=== PATIENT | female | born 1965 | race Caucasian/White ===

== ENCOUNTER 2017-04-14 16:20 | Inpatient (IN) | payer OTHER ==
[2017-04-14] VITALS (10 sets, daily range): BP systolic 85–123; BP diastolic 31–87
[~2017-04-14] VITALS: Ht 167.6 cm; Wt 95.8 kg
--- NOTE | ~2017-04-14 | 2DMMODE ---
[facility] [address] [place] [address] 2 D/M-MODE ECHOCARDIOGRAM Name: MATY BRAGA Room #: 246-P ADM IN .R.#: [id number] Admission: 04/14/17 Attend Phys: Bri Love Discharge: Date of : 67 Date of Service: 04/15/17 0915 Report #: [id number] THIS REPORT FOR: //name// APPROVED REPORT Study performed: 04/15/2017 08:35:45 EXAM: Comprehensive 2D, Doppler, and color-flow Echocardiogram Patient Location: ICU Room #: 246 Status: routine BSA: 2.01 HR: 59 bpm BP: 117/55 mmHg Other Information Study Quality: Adequate Indications Pulmonary Embolism Syncope Hypertension/HDD 2D Dimensions RVDd: 34.16 mm LVEF(%): 64.26 (>50%) IVSd: 9.83 (7-11mm) LVOT Diam: 19.71 (18-24mm) LVDd: 54.44 mm PWd: 9.66 (7-11mm) Ascending Ao: 27.04 (22-36mm) LVDs: 35.17 (25-40mm) Aortic Root: 30.72 mm IVC: 19.00 mm Galvan's LVEF: 64.26 % Volumes Left Atrial Volume (Systole) Single Plane 4CH: 43.67 mL Single Plane 2CH: 32.71 mL LA ESV Index: 22.00 mL/m2 Aortic Valve AoV Peak Paulo.: 1.23 m/s AO Peak Gr.: 6.04 mmHg LVOT Max P.64 mmHg LVOT Max V: 1.08 m/s MIKE Vmax: 2.67 cm2 Mitral Valve E/A Ratio: 1.4 [facility] [address] [address] 2 D/M-MODE ECHOCARDIOGRAM Name: MARIA LUZMATY Anita Room #: 246-[facility].#: [id number] Admission: 04/14/17 Attend Phys: Bri Love Discharge: Date of : 67 Date of Service: 04/15/17 0915 Report #: [id number] MV Decel. Time: 180.37 ms MV E Max Paulo.: 0.92 m/s MV A Paulo.: 0.68 m/s MV PHT: 52.31 ms IVRT: 83.04 ms Pulmonary Valve PV Peak Paulo.: 0.98 m/s PV Peak Gr.: 3.86 mmHg Pulmonary Vein P Vein S: 0.38 m/s P Vein A: 0.20 m/s P Vein D: 0.25 m/s P Vein A Dur.: 124.6 msec P Vein S/D Ratio: 1.52 Tricuspid Valve TR Peak Paulo.: 2.47 m/s TR Peak Gr.: 24.31 mmHg PA Pressure: 29.00 mmHg Left Ventricle The left ventricle is normal size. There is normal LV segmental wall motion. There is normal left ventricular wall thickness. The left ventricular systolic function is normal. The left ventricular ejection fraction is within the normal range. LVEF is 60-65%. Grade II - pseudonormal filling dynamics. Right Ventricle The right ventricle is normal size. The right ventricular systolic function is normal. Atria The left atrium size is normal. The right atrium size is normal. Aortic Valve The aortic valve is normal in structure. No aortic regurgitation is present. There is no aortic valvular stenosis. Mitral Valve The mitral valve is normal in structure. Trace mitral regurgitation. No evidence of mitral valve stenosis. Tricuspid Valve The tricuspid valve is normal in structure. There is no tricuspid valve stenosis. There is trace tricuspid regurgitation. The right atrial pressure is estimated at mmHg. There is no pulmonary [facility] [address] [place] [address] 2 D/M-MODE ECHOCARDIOGRAM Name: MATY BRAGA Room #: 246-P [facility]#: [id number] Admission: 04/14/17 Attend Phys: Bri Love Discharge: Date of : 67 Date of Service: 04/15/17 0915 Report #: [id number] hypertension. Pulmonic Valve The pulmonary valve is normal in structure. Trace pulmonic regurgitation. Great Vessels The aortic root is normal in size. IVC is normal in size and collapses >50% with inspiration. Pericardium There is no pericardial effusion. <Conclusion> The left ventricular systolic function is normal. There is normal LV segmental wall motion. LVEF 60-65%. The right ventricle is normal size. The aortic valve is normal in structure. No aortic regurgitation or stenosis The mitral valve is normal in structure. Trace mitral regurgitation. Pulmonary artery pressure of 30mmHg There is no pericardial effusion. <ELECTRONICALLY SIGNED> By: Willian Dia MD, [facility] 04/15/17914 4 4 Willian Dia MD, FACC /INF
--- NOTE | ~2017-04-14 | EKG ---
[address] [address] ELECTROCARDIOGRAM REPORT Name: MATY BRAGA Room #: 170-6 ADM IN M.R.#: [id number] Admission: 04/14/17 Attend Phys: Bri Ahmadi Discharge: Date of : 67 Report #: [id number] THIS REPORT FOR: //name// [facility] ED Test Date: 2017-04-14 Test Time: 16:31:50 Pat Name: MATY BRAGA Department: Room: 170 Gender: F Sandwich Maker: DOLORES : 1965 Requested By: Joselyn Booth Order Number: [id number] MD: Mario Arana Measurements Intervals [place] Rate: 70 P: 30 KS: 166 QRS: 20 QRSD: 107 T: 79 QT: 466 QTc: 503 Interpretive Statements Sinus rhythm Borderline repolarization abnormality No previous ECG available for comparison Electronically Signed On 04-14-2017 20:20:22 QUALITY PROCESS LEAD by Mario Arana [email or web address] <ELECTRONICALLY SIGNED> By: Mario Arana MD 04/14/172019 30 1631 Mario Arana MD /YANCI
[2017-04-14] MEDS ORDERED: ZANTAC 150MG T150 MG PO (16:29)
[2017-04-14] MEDS ORDERED: ZYRTEC10 M4 PO (16:30)
[2017-04-14] MEDS ORDERED: XANAX 0.5 MG0.5 MG PO (16:30)
[2017-04-14] MEDS ORDERED: SYNTHROID100 MCG PO (16:30)
[2017-04-14] MEDS ORDERED: BUSPIRONE HCL10 MG PO (16:31)
[2017-04-14] MEDS ORDERED: LOVASTATIN 20 M20 MG PO (16:31)
[2017-04-14] MEDS ORDERED: ZOLOFT100 MG PO (16:32)
[2017-04-14] MEDS ORDERED: TESSALON PERLE100 MG PO (16:32)
[2017-04-14] MEDS ORDERED: WELLBUTRIN XL300 MG PO (16:32)
[2017-04-14] MEDS ORDERED: FOSINOPRIL 10 M10 M1 PO (16:33)
[2017-04-14] MEDS ORDERED: LAMOTRIGINE100 MG PO (16:33)
[2017-04-14] MEDS ORDERED: MAXZIDE-25 MG1 EACH PO (16:33)
[2017-04-14 16:48] LABS: ABSOLUTE NEUTROPHILS 5.6 thou/uL (1.4-8.2); BASOPHILS 0.8 % (0.0-2.0); EOSINOPHILS 1.8 % (0.0-3.0); HEMATOCRIT 44.7 % (37.0-47.0); HEMOGLOBIN 15.4 gm/dL (12.0-15.0); LYMPHOCYTES 35.1 % (24.0-44.0); MCHC 34.4 g/dL (28.0-37.0); MCV 87.2 fL (80.0-100.0); PLATELET COUNT 304 thou/uL (150-400); POLYS 55.3 % (36.0-66.0); RBC 5.12 mil/uL (4.20-5.00); RDW 12.8 % (10.5-14.5); WBC 10.1 thou/uL (4.0-11.0)
[2017-04-14 16:54] LABS: ANION GAP 10 mmol/L (7-16); BUN 14 mg/dL (7-18); CALCIUM 8.7 mg/dL (8.5-10.1); CHLORIDE 102 mmol/L (98-107); CO2 26 mmol/L (21-32); CREATININE 1.1 mg/dL (0.6-1.0); GLUCOSE 134 mg/dL (74-106); MANUAL DIFF NO; POTASSIUM 3.3 mmol/L (3.5-5.1); SODIUM 138 mmol/L (136-145)
[2017-04-14 17:03] LABS: ALKALINE PHOSPHATASE 87 U/L (46-116); SGOT 16 U/L (15-37); SGPT 32 U/L (30-65); TOTAL BILIRUBIN 0.3 mg/dL (<0.1-1.0); TOTAL PROTEIN 7.4 g/dL (6.4-8.2); TROPONIN-I < 0.04 ng/mL (<0.06)
[2017-04-14 17:43] LABS: URINE BILIRUBIN NEGATIVE (Negative); URINE BLOOD TRACE (Negative); URINE COLOR YELLOW; URINE GLUCOSE-RANDOM* NEGATIVE (Negative); URINE KETONES NEGATIVE (Negative); URINE NITRITE NEGATIVE (Negative); URINE PROTEIN (DIPSTICK) NEGATIVE (Negative); URINE UROBILINOGEN 0.2 E.U./dl (0.2-1.0)
[2017-04-14 19:03] LABS: AMP/METHAMP Negative (Negative); BARBITURATES Negative (Negative); BENZODIAZEPINES POSITIVE (Negative); COCAINE Negative (Negative); METHADONE Negative (Negative); OPIATES Negative (Negative); PCP Negative (Negative); THC Negative (Negative)
[2017-04-15] VITALS (37 sets, daily range): BP systolic 82–140; BP diastolic 37–78
[2017-04-15 04:34] LABS: ABSOLUTE NEUTROPHILS 3.7 thou/uL (1.4-8.2); BASOPHILS 0.6 % (0.0-2.0); EOSINOPHILS 2.9 % (0.0-3.0); HEMATOCRIT 40.8 % (37.0-47.0); HEMOGLOBIN 13.7 gm/dL (12.0-15.0); LYMPHOCYTES 40.1 % (24.0-44.0); MCH 29.5 pg (26.0-34.0); MCHC 33.7 g/dL (28.0-37.0); MCV 87.5 fL (80.0-100.0); MONOCYTES 6.6 % (1.0-8.0); PLATELET COUNT 247 thou/uL (150-400); POLYS 49.8 % (36.0-66.0); RBC 4.66 mil/uL (4.20-5.00); RDW 13.2 % (10.5-14.5); WBC 7.5 thou/uL (4.0-11.0)
[2017-04-15 04:40] LABS: MANUAL DIFF NO
[2017-04-15 04:46] LABS: ALBUMIN 3.4 g/dL (3.4-5.0); CALCIUM 8.3 mg/dL (8.5-10.1); CREATININE 0.9 mg/dL (0.6-1.0); PHOSPHORUS 3.7 mg/dL (2.5-4.9); POTASSIUM 4.2 mmol/L (3.5-5.1)
[2017-04-15 09:38] LABS: PROTIME 10.2 Seconds (9.3-11.4)
[2017-04-16] VITALS (17 sets, daily range): BP systolic 97–152; BP diastolic 45–78
[2017-04-17 00:06] LABS: ANTITHROMBIN III 91 % (75-135); DIL. RUSSELL VIPER VENOM 45.8 sec (0.0-47.0)
[2017-04-17 03:40] VITALS: BP 115/41
[2017-04-17 07:32] VITALS: BP 126/73
[2017-04-17] MEDS ORDERED: XARELTO15 MG PO (12:49)
[2017-04-17 15:40] VITALS: BP 142/69
[2017-04-17 16:00] VITALS: BP 142/69
[2017-04-20 17:10] LABS: PROTHROMBIN GENE MUTATION Negative (())
== END 2017-04-17 16:20 | disposition home or self-care (01) | DRG 176 ==
LOC: ER 16:20 → ICU 18:08 → EROBS 18:08 → ICU 20:47 → 4E 04-16 15:16
PROVIDERS: Hospitalist; Nurse Practitioner Family
DX: I26.99 Other pulmonary embolism without acute cor pulmonale (principal); I95.9 Hypotension, unspecified; F32.9 Major depressive disorder, single episode, unspecified; F41.9 Anxiety disorder, unspecified; E78.5 Hyperlipidemia, unspecified; I10 Essential (primary) hypertension; F17.210 Nicotine dependence, cigarettes, uncomplicated; E66.9 Obesity, unspecified; E87.6 Hypokalemia; T50.2X5A Adverse effect of carbonic-anhydrase inhibitors, benzothiadiazides and other diuretics, initial encounter; Z90.710 Acquired absence of both cervix and uterus; Z85.43 Personal history of malignant neoplasm of ovary; Z79.899 Other long term (current) drug therapy; Z88.1 Allergy status to other antibiotic agents; Z68.34 Body mass index [BMI] 34.0-34.9, adult; Z88.2 Allergy status to sulfonamides; Z88.8 Allergy status to other drugs, medicaments and biological substances; Y92.89 Other specified places as the place of occurrence of the external cause
CPT/HCPCS: 10183; 10203

== ENCOUNTER 2017-05-29 11:34 | Inpatient (IN) | payer OTHER ==
[~2017-05-29] VITALS: Ht 167.6 cm; Wt 93.8 kg
--- NOTE | ~2017-05-29 | EKG ---
[address] [address] ELECTROCARDIOGRAM REPORT Name: MATY BRAGA Anita Room #: 446-P ADM IN M.R.#: [id number] Admission: 05/29/17 Attend Phys: Sebastián Little MD Discharge: Date of : 67 Report #: [id number] THIS REPORT FOR: //name// [facility] ED Test Date: 2017-05-29 Test Time: 12:19:17 Pat Name: MATY BRAGA Department: Room: 44 Gender: F Negative Developer: LOAN : 1965 Requested By: Bettina Mahajan Order Number: [id number] MD: Mario Arana Measurements Intervals [place] Rate: 72 P: 13 MN: 182 QRS: 13 QRSD: 103 T: 12 QT: 427 QTc: 468 Interpretive Statements Sinus rhythm Borderline T abnormalities, lateral leads Compared to ECG 04/14/2017 16:31:50 T-wave abnormality now present Electronically Signed On 05-29-2017 22:28:37 GOPHERMAN by Mario Arana [email or web address] <ELECTRONICALLY SIGNED> By: Mario Arana MD 05/29/17 2228 1219 Mario Arana MD /EPI
--- NOTE | ~2017-05-29 | 2DMMODE ---
[facility] [address] [place] [address] 2 D/M-MODE ECHOCARDIOGRAM Name: MATY BRAGA Anita Room #: 446-P [facility]#: [id number] Admission: 05/29/17 Attend Phys: Sebastián Little, Discharge: 05/30/17 Date of : 67 Date of Service: 05/31/17 1204 Report #: [id number] THIS REPORT FOR: //name// APPROVED REPORT Study performed: 05/30/2017 12:35:06 EXAM: Comprehensive 2D, Doppler, and color-flow Echocardiogram Patient Location: Bedside Room #: 446 Status: on-call BSA: 2.02 HR: 73 bpm BP: 111/91 mmHg Rhythm: NSR Other Information Study Quality: Good Risk Factors: Cardiac Risk Factors: HTN, Hyperlipidemia, Smoking Indications CVA/TIA Echo Enhancing Agent Indication: Rule out Shunt Agent(s) / Amount(s) Used: Agitated Saline 7 cc 2D Dimensions LVEF(%): 66.35 (>50%) IVSd: 10.67 (7-11mm) LVOT Diam: 20.00 (18-24mm) LVDd: 51.52 mm PWd: 8.62 (7-11mm) Ascending Ao: 29.97 (22-36mm) LVDs: 32.54 (25-40mm) Aortic Root: 26.48 mm LV Single Plane 4CH: 57.71 % LV Single Plane 2CH: 69.00 % Galvan's LVEF: 63.35 % Biplane EF: 62.9 % Volumes Left Atrial Volume (Systole) Single Plane 4CH: 36.93 mL Single Plane 2CH: 29.22 mL LA ESV Index: 17.00 mL/m2 [facility] [place] [address] 2 D/M-MODE ECHOCARDIOGRAM Name: MARIA LUZMATY Room #: 446-[facility]..#: [id number] Admission: 05/29/17 Attend Phys: Sebastián Little, Discharge: 05/30/17 Date of : 67 Date of Service: 05/31/17 1204 Report #: [id number] Mitral Valve E/A Ratio: 1.4 MV Decel. Time: 232.38 ms MV E Max Paulo.: 0.85 m/s MV A Paulo.: 0.61 m/s MV PHT: 67.39 ms IVRT: 83.04 ms TDI E/Lateral E': 10.63 E/Medial E': 17.00 Medial E' Paulo.: 0.05 m/s Lateral E' Paulo.: 0.08 m/s Pulmonary Valve PV Peak Paulo.: 0.96 m/s PV Peak Gr.: 3.70 mmHg Pulmonary Vein P Vein S: 0.49 m/s P Vein A: 0.28 m/s P Vein D: 0.49 m/s P Vein A Dur.: 179.9 msec P Vein S/D Ratio: 1.00 Tricuspid Valve TR Peak Paulo.: 2.04 m/s RAP Estimate: 5.00 mmHg TR Peak Gr.: 16.68 mmHg PA Pressure: 22.00 mmHg Left Ventricle The left ventricle is normal size. There is normal LV segmental wall motion. There is normal left ventricular wall thickness. Left ventricular systolic function is normal. The left ventricular ejection fraction is within the normal range. LVEF is 60-65%. The left ventricular diastolic function is normal. Right Ventricle The right ventricle is normal size. The right ventricular systolic function is normal. Atria The left atrium size is normal. Injection of bubbles documented no interatrial shunt. The right atrium size is normal. Aortic Valve The aortic valve is normal in structure. No aortic regurgitation is present. There is no aortic valvular stenosis. [address] [address] 2 D/M-MODE ECHOCARDIOGRAM Name: MATY BRGAA Room #: 446-P [facility] ..#: [id number] Admission: 05/29/17 Attend Phys: Sebastián Little, Discharge: 05/30/17 Date of : 67 Date of Service: 05/31/17 1204 Report #: [id number] Mitral Valve The mitral valve is normal in structure. Trace mitral regurgitation. Cannot exclude mitral valve vegetation. No evidence of mitral valve stenosis. Tricuspid Valve The tricuspid valve is normal in structure. Trace tricuspid regurgitation. Pulmonary artery pressure is 22 mmHg. Pulmonic Valve The pulmonary valve is normal in structure. Trace pulmonic regurgitation. Great Vessels The aortic root is normal in size. IVC is normal in size and collapses with >50% inspiration Pericardium There is no pericardial effusion. <Conclusion> The left ventricle is normal size. LVEF is 60-65%. The aortic valve is normal in structure. No aortic regurgitation is present. The mitral valve is mildly thickened with what appears to be thickened chordae cannot exclude vegetation clinical correlation suggested Trace mitral regurgitation. The tricuspid valve is normal in structure. Trace tricuspid regurgitation. Pulmonary artery pressure is 22 mmHg. The pulmonary valve is normal in structure. Trace pulmonic regurgitation. There is no pericardial effusion. <ELECTRONICALLY SIGNED> By: Jeremie Bowles MD 05/31/17 1204 1204 120 Jeremie Bowles MD /INF
[~2017-05-29 11:34] MED LIST: BUSPIRONE HCL10 MG PO; FOSINOPRIL 10 M10 M1 PO; LAMOTRIGINE100 MG PO; LOVASTATIN 20 M20 MG PO; MAXZIDE-25 MG1 EACH PO; SYNTHROID100 MCG PO; TESSALON PERLE100 MG PO; WELLBUTRIN XL300 MG PO; XANAX 0.5 MG0.5 MG PO; XARELTO15 MG PO; ZANTAC 150MG T150 MG PO; ZOLOFT100 MG PO; ZYRTEC10 M4 PO
[2017-05-29 11:35] VITALS: BP 176/93
[2017-05-29 11:57] LABS: ABSOLUTE NEUTROPHILS 5.3 thou/uL (1.4-8.2); BASOPHILS 0.9 % (0.0-2.0); EOSINOPHILS 1.6 % (0.0-3.0); HEMATOCRIT 44.2 % (37.0-47.0); HEMOGLOBIN 15.3 gm/dL (12.0-15.0); LYMPHOCYTES 31.4 % (24.0-44.0); MCH 30.4 pg (26.0-34.0); MCHC 34.6 g/dL (28.0-37.0); MCV 87.9 fL (80.0-100.0); MONOCYTES 4.9 % (1.0-8.0); PLATELET COUNT 290 thou/uL (150-400); POLYS 61.2 % (36.0-66.0); RBC 5.03 mil/uL (4.20-5.00); RDW 12.8 % (10.5-14.5); WBC 8.7 thou/uL (4.0-11.0)
[2017-05-29 12:06] LABS: CALCIUM 8.7 mg/dL (8.5-10.1); CREATININE 0.9 mg/dL (0.6-1.0); POTASSIUM 3.4 mmol/L (3.5-5.1)
[2017-05-29 12:07] LABS: POC CA IONIZED 4.6 mg/dL (4.5-5.3); POC CREATININE 0.8 mg/dL (0.6-1.3); POC HEMOGLOBIN 15.6 g/dL (12.0-15.0); POC POTASSIUM 3.5 mmol/L (3.5-5.1)
[2017-05-29 12:10] LABS: APTT 33.6 Seconds (24.5-32.8); INR 1.1; PROTIME 11.7 Seconds (9.3-11.4)
[2017-05-29 15:34] VITALS: BP 137/88
[2017-05-29 16:13] VITALS: BP 135/78
[2017-05-29 17:22] VITALS: BP 136/59
[2017-05-29] MEDS ORDERED: XARELTO20 MG PO (18:00)
[2017-05-29 19:04] VITALS: BP 123/63
[2017-05-29 20:55] VITALS: BP 115/84
[2017-05-30 04:00] LABS: CHOLESTEROL 177 mg/dL (<200); HDL CHOLESTEROL 44 mg/dL (>40); LDL CHOLESTEROL 97 mg/dL (<100); TRIGLYCERIDE 182 mg/dL (<150); VLDL 36 mg/dL (<40)
[2017-05-30 04:07] LABS: SERUM ASSESSMENT Slight Lipemia
[2017-05-30 04:58] VITALS: BP 111/69
[2017-05-30 08:08] VITALS: BP 111/91
[2017-05-30 15:42] VITALS: BP 111/91
== END 2017-05-30 16:30 | disposition home or self-care (01) | DRG 69 ==
LOC: ER 11:34 → EROBS 14:59 → 4S 14:59
PROVIDERS: Emergency Medicine; Internal Medicine
DX: G45.9 Transient cerebral ischemic attack, unspecified (principal); G45.3 Amaurosis fugax; I10 Essential (primary) hypertension; F17.210 Nicotine dependence, cigarettes, uncomplicated; G43.909 Migraine, unspecified, not intractable, without status migrainosus; E03.9 Hypothyroidism, unspecified; K21.9 Gastro-esophageal reflux disease without esophagitis; F32.9 Major depressive disorder, single episode, unspecified; F41.9 Anxiety disorder, unspecified; E78.5 Hyperlipidemia, unspecified; Z90.710 Acquired absence of both cervix and uterus; Z88.1 Allergy status to other antibiotic agents; Z86.711 Personal history of pulmonary embolism; Z88.2 Allergy status to sulfonamides; Z88.8 Allergy status to other drugs, medicaments and biological substances; Z79.899 Other long term (current) drug therapy
CPT/HCPCS: 10102